=== PATIENT | female | born 1990 | race Caucasian/White ===

== ENCOUNTER → 2016-09-06 | Outpatient (CLI) | payer BC, OTHER ==
--- NOTE | 2016-09-06 08:43 | US ---
EXAMINATION TYPE: US abdomen complete DATE OF EXAM: 09/06/2016 7:31 AM COMPARISON: NONE CLINICAL HISTORY: R10.84 Gen Abd Pain. EXAM MEASUREMENTS: Liver Length: 12.2 cm Gallbladder Wall: 0.2 cm CBD: 0.3 cm Spleen: 11.5 cm Right Kidney: 9.7 x 3.8 x 3.9 cm Left Kidney: 9.8 x 4.8 x 4.6 cm TECHNOLOGIST IMPRESSION: Technically difficult study, patient developmentally disabled unable to hol d still, unable to hold her breath Pancreas: partially obscured by bowel gas Liver: only able to scan right lobe intercostally due to bowel gas, patient cooperation Gallbladder: wnl Evidence for sonographic Avina's sign: no CBD: wnl Spleen: wnl Right Kidney: wnl Left Kidney: wnl Upper IVC: wnl Abd Aorta: wnl IMPRESSION: LIMITED STUDY DEMONSTRATING NO ACUTE ABNORMALITY.
== END | disposition home or self-care (01) ==
LOC: EEVIPCON 07:25 → RADUSWWP 07:25
PROVIDERS: ATTEND Family Medicine
DX: R10.84 Generalized abdominal pain (principal)
CPT/HCPCS: 76700

== ENCOUNTER → 2024-05-12 | Outpatient (CLI) | payer BC, OTHER ==
--- NOTE | 2024-05-12 15:44 | US ---
EXAMINATION TYPE: US kidneys/renal and bladder DATE OF EXAM: 05/12/2024 COMPARISON: US 2017 CLINICAL INDICATION: Female, 33 years old with history of N39.9 UTI; Frequent UTI's TECHNIQUE: Grayscale and color Doppler imaging of the bilateral kidneys and urinary bladder: FINDINGS: EXAM MEASUREMENTS: Right Kidney: 9.7 x 4.5 x 4.3 cm Left Kidney: 10.0 x 4.7 x 4.1 cm Right Kidney: No hydronephrosis or masses seen Left Kidney: No hydronephrosis or masses seen Bladder: wnl Bilateral Jets seen: right jet seen, left jet not seen There is no evidence for hydronephrosis at this point in time. No nephrolithiasis is seen. No hernesto s are identified. The urinary bladder is anechoic. Right ureteral jet was present. IMPRESSION: 1. No evidence for obstructive uropathy or renal calculus. [facility] Zoya Guillen, , 05/12/2024 3:42 PM
== END | disposition home or self-care (01) ==
LOC: RADUSWWP 14:47
PROVIDERS: ATTEND Urology
CPT/HCPCS: 76770